=== PATIENT | female | born 1985 | race Caucasian/White ===

== ENCOUNTER 2018-02-16 11:23 | Emergency (ER) | payer OTHER, SELFPAY ==
--- NOTE | 2018-02-16 13:33 | EDPHYS ---
Physician Documentation [facility] Name: Rosemarie Cade Age: 32 yrs Sex: Female : 1985 Arrival Date: 02/16/2018 Time: 11:28 Bed 14 Private MD: ED Physician Shelli Herrera HPI: 02/16 13:31 This 32 yrs old Female presents to ER via Ambulatory with complaints of Flu ma2 Symptoms. 13:31 flu like ssymptoms x 2 days gradual mild unchanged constant. 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 - Social history:: Smoking status: Patient/guardian denies using tobacco, Patient/guardian denies using alcohol, street drugs, The patient lives with family. - Ebola Screening: : No symptoms or risks identified at this time. - Family history:: not pertinent. ROS: 13:31 Cardiovascular: Negative for chest pain, palpitations, and edema, Respiratory: Negative ma2 for shortness of breath, cough, wheezing, and pleuritic chest pain, Abdomen/GI: Negative for abdominal pain, nausea, diarrhea, and constipation, MS/Extremity: Negative for injury and deformity, Skin: Negative for injury, rash, and discoloration, Endocrine: Negative for neck swelling, polydipsia, polyuria, polyphagia, and marked weight changes. 13:31 Constitutional: Positive for body aches, chills, fever, Negative for fatigue, weight loss. 13:31 All other systems are negative. Exam: 13:31 Constitutional: This is a well developed, well nourished patient who is awake, alert, ma2 and in no acute distress. ENT: Nares patent. No nasal discharge, no septal abnormalities noted. Tympanic membranes are normal and external auditory canals are clear. Oropharynx with no redness, swelling, or masses, exudates, or evidence of obstruction, uvula midline. Mucous membranes moist. Chest/axilla: Normal chest wall appearance and motion. Nontender with no deformity. No lesions are appreciated. Cardiovascular: Regular rate and rhythm with a normal S1 and S2. No gallops, murmurs, or rubs. Normal PMI, no JVD. No pulse deficits. Respiratory: Lungs have equal breath sounds bilaterally, clear to auscultation and percussion. No rales, rhonchi or wheezes noted. No increased work of breathing, no retractions or nasal flaring. Skin: Warm, dry with normal turgor. Normal color with no rashes, no lesions, and no evidence of cellulitis. Neuro: Awake and alert, GCS 15, oriented to person, place, time, and situation. Cranial nerves II-XII grossly intact. Motor strength 5/5 in all extremities. Sensory grossly intact. Cerebellar exam normal. Normal gait. Vital Signs: 11:45 BP 147 / 77; Pulse 113; Resp 22 S; Temp 102.2(TE); Pulse Ox 96% ; Weight 68.95 kg (R); aa5 Height 5 ft. 4 in. (162.56 cm) (R); Pain 8/10; 12:45 BP 143 / 71; Pulse 98; Resp 20; Pulse Ox 98% on R/A; Pain 6/10; rb1 13:45 BP 117 / 75; Pulse 99; Resp 20; Pulse Ox 99% on R/A; Pain 5/10; rb1 11:45 Body Mass Index 26.09 (68.95 kg, 162.56 cm) aa5 MDM: 13:31 Differential Diagnosis flu. Data reviewed: vital signs, nurses notes, EMS record. ma2 Counseling: I had a detailed discussion with the patient and/or guardian regarding: the historical points, exam findings, and any diagnostic results supporting the discharge/admit diagnosis, the presence of at least one elevated blood pressure reading (>120/80) during this emergency department visit, the need for outpatient follow up. 13:32 Patient medically screened. nj2 02/16 12:23 Order name: Influenza Screen (a \T\ B); Complete Time: 13:18 ma2 02/16 12:23 Order name: Strep; Complete Time: 13:18 nj2 02/16 12:53 Order name: Throat Culture EDMS Administered Medications: No medications were administered Disposition: 02/16/18 13:32 Discharged to Home. Impression: Influenza due to certain identified influenza viruses. - Condition is Stable. - Discharge Instructions: Influenza, Adult. - Prescriptions for Tamiflu 75 mg Oral Capsule - take 1 capsule by ORAL route every 12 hours for 5 days; 10 capsule. Tylenol- Codeine #3 300-30 mg Oral Tablet - take 2 tablet by ORAL route every 6 hours As needed; 6 tablet. - Medication Reconciliation Form, Thank You Letter, Antibiotic Education, Prescription Opioid Use form. - Follow up: Private Physician; When: Tomorrow; Reason: Continuance of care. Signatures: Dispatcher [employer] EDMS Yin Townsend RN RN aa5 Marycarmen Ramos RN RN rb1 Shelli Herrera MD MD ma2 Corrections: (The following items were deleted from the chart) 14:07 13:32 02/16/2018 13:32 Discharged to Home. Impression: Influenza due to certain rb1 identified influenza viruses. Condition is Stable. Forms are Medication Reconciliation Form, Thank You Letter, Antibiotic Education, Prescription Opioid Use. Follow up: Private Physician; When: Tomorrow; Reason: Continuance of care. ma2
--- NOTE | 2018-02-16 13:33 | ER ---
Nurse's Notes [facility] Name: Rosemarie Cade Age: 32 yrs Sex: Female : 1985 Arrival Date: 02/16/2018 Time: 11:28 Bed 14 Private MD: Diagnosis: Influenza due to certain identified influenza viruses Presentation: 02/16 11:43 Presenting complaint: Patient states: cough, congestion, fever, and chest pain that aa5 began . Transition of care: patient was not received from another setting of care. Onset of symptoms was January 2018. Risk Assessment: Do you want to hurt yourself or someone else? Patient reports no desire to harm self or others. Care prior to arrival: None. 11:43 Method Of Arrival: Ambulatory aa5 11:43 Acuity: VANESSA 3 aa5 12:10 Initial Sepsis Screen: Does the patient meet any 2 criteria? No. Patient's initial rb1 sepsis screen is negative. Does the patient have a suspected source of infection? Yes: Other: fever. Triage Assessment: 12:10 Pain: Complains of pain in bodyaches- generalized Pain currently is 5 out of 10 on a rb1 pain scale. 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 - Social history:: Smoking status: Patient/guardian denies using tobacco, Patient/guardian denies using alcohol, street drugs, The patient lives with family. - Ebola Screening: : No symptoms or risks identified at this time. - Family history:: not pertinent. Screenin:10 Abuse screen: Denies threats or abuse. Tuberculosis screening: No symptoms or risk rb1 factors identified. Fall Risk None identified. 12:10 Nutritional screening: decreased appetite. rb1 Assessment: 12:10 General: Appears uncomfortable, Behavior is calm, cooperative, Reports fever for > 3 rb1 days. Neuro: Level of Consciousness is awake, alert, obeys commands, Oriented to person, place, time, situation. Cardiovascular: Capillary refill < 3 seconds is brisk in bilateral fingers. Respiratory: Airway is patent Respiratory effort is even, unlabored, Respiratory pattern is regular, symmetrical. GI: No signs and/or symptoms were reported involving the gastrointestinal system. : No signs and/or symptoms were reported regarding the genitourinary system. Derm: Skin is dry, Skin is normal, Skin temperature is warm. Vital Signs: 11:45 BP 147 / 77; Pulse 113; Resp 22 S; Temp 102.2(TE); Pulse Ox 96% ; Weight 68.95 kg (R); aa5 Height 5 ft. 4 in. (162.56 cm) (R); Pain 8/10; 12:45 BP 143 / 71; Pulse 98; Resp 20; Pulse Ox 98% on R/A; Pain 6/10; rb1 13:45 BP 117 / 75; Pulse 99; Resp 20; Pulse Ox 99% on R/A; Pain 5/10; rb1 11:45 Body Mass Index 26.09 (68.95 kg, 162.56 cm) aa5 ED Course: 11:28 Patient arrived in ED. sb2 11:44 Triage completed. aa5 11:44 Arm band placed on. aa5 12:08 Shleli Herrera MD is Attending Physician. ma2 12:10 Patient has correct armband on for positive identification. Bed in low position. Call rb1 light in reach. Side rails up X 1. Pulse ox on. NIBP on. 12:31 Marycarmen Ramos, RN is Primary Nurse. rb1 14:00 No provider procedures requiring assistance completed. Patient did not have IV access rb1 during this emergency room visit. Administered Medications: No medications were administered Outcome: 13:32 Discharge ordered by . ma2 14:00 Patient left the ED. rb1 14:00 Discharged to home ambulatory. rb1 14:00 Condition: stable 14:00 Discharge instructions given to patient, Instructed on discharge instructions, follow up and referral plans. medication usage, Demonstrated understanding of instructions, follow-up care, medications, Prescriptions given X 1. Signatures: Yin Townsend RN RN aa5 Marycarmen Ramos, JUAN PABLO RN rb1 Shelli Herrera MD MD ma2 Snehal Stiles sb2 Corrections: (The following items were deleted from the chart) 14:18 14:07 Patient left the ED. rb1 rb1
[2018-02-16 14:19] VITALS: BP 147/77; TEMP 102.2; O2SAT 96
== END 2018-02-16 14:07 | disposition home or self-care (01) ==
LOC: ER 11:23
DX: J10.1 Influenza due to other identified influenza virus with other respiratory manifestations (principal)
CPT/HCPCS: 87070; 87081; 87804; 99283

== ENCOUNTER 2020-04-26 13:03 | Emergency (ER) | payer SELFPAY ==
[2020-04-26] MEDS ORDERED: ACETAMINOPHEN 500 MG TAB ONE (16:01)
[2020-04-26 16:40] LABS: Urine Bacteria 20-50 /HPF (<20); Urine RBC <5 /HPF (NONE SEEN)
[2020-04-26 16:48] LABS: SARS-COV-2 RT PCR NEGATIVE (NEGATIVE)
--- NOTE | 2020-04-26 17:02 | ER ---
Nurse's Notes [facility] Name: Rosemarie Coy Age: 35 yrs Sex: Female : 1985 Arrival Date: 04/26/2020 Time: 13:04 Bed 6 Private MD: Diagnosis: Urinary tract infection, site not specified;Fever, unspecified Presentation: 04/26 13:09 Chief complaint: Patient states: Loss of taste/smell, fever, body aches, chills, BANGURA, ll1 fatigue, no appetite, SOB with exertion for 6 days. Cough for 1 day. R lower back pain for 10 days. No dysuria. Covid test Friday was negative. Coronavirus screen: Client denies travel out of the [place] in the last 14 days. chills, congestion, cough unrelated to allergies, diarrhea, difficulty breathing, fatigue, fever, headache, muscle pain, nausea, shaking with chills, shortness of breath, loss of taste or smell, Client presents with at least one sign or symptom that may indicate coronavirus-19. Standard/surgical mask placed on the client. Ebola Screen: Patient denies travel to an Ebola-affected area in the 21 days before illness onset. Initial Sepsis Screen: Does the patient meet any 2 criteria? HR > 90 bpm. No. Patient's initial sepsis screen is negative. Does the patient have a suspected source of infection? Yes: Productive cough/pneumonia. Risk Assessment: Do you want to hurt yourself or someone else? Patient reports no desire to harm self or others. Onset of symptoms was April 21, 2020. 13:09 Method Of Arrival: Ambulatory ll1 13:09 Acuity: VANESSA 3 ll1 Historical: - Allergies: 13:14 No Known Allergies; ll1 - PMHx: 13:14 None; ll1 - PSHx: 13:14 ; BREAST AUGMENTATION; ll1 - Immunization history:: Flu vaccine is not up to date. - Social history:: Smoking status: Patient denies any tobacco usage or history of. Screenin:30 Abuse screen: Denies threats or abuse. Denies injuries from another. Nutritional ss screening: No deficits noted. Tuberculosis screening: Never had TB. Fall Risk None identified. Assessment: 15:30 General: Appears in no apparent distress. comfortable, Behavior is calm, cooperative, ss Reports feeling ill for > 3 days, fatigue for >3 days. Pain: Complains of pain in generalized body aches Pain currently is 7 out of 10 on a pain scale. Quality of pain is described as aching, Is continuous. Neuro: Level of Consciousness is awake, alert, obeys commands, Oriented to person, place, time, situation, Denies blurred vision dizziness. Cardiovascular: Capillary refill < 3 seconds is brisk in bilateral fingers. Respiratory: Reports cough that is Airway is patent Respiratory effort is even, unlabored, Respiratory pattern is regular, symmetrical. GI: Patient currently denies diarrhea, nausea, vomiting. : No signs and/or symptoms were reported regarding the genitourinary system. EENT: Reports loss of taste/ smell x 6 days. Derm: Skin is intact, is healthy with good turgor, Skin is dry, Skin is pink, warm \\T\\ dry. normal. Musculoskeletal: Circulation, motion, and sensation intact. Range of motion: intact in all extremities, Swelling absent. Vital Signs: 13:09 BP 125 / 90; Pulse 114; Resp 18; Temp 100.7; Pulse Ox 94% on R/A; Weight 70.76 kg; ll1 Height 5 ft. 4 in. (162.56 cm); Pain 7/10; 16:40 Pulse 91; Resp 16; Pulse Ox 98% on R/A; ss 13:09 Body Mass Index 26.78 (70.76 kg, 162.56 cm) ll1 ED Course: 13:04 Patient arrived in ED. am2 13:13 Triage completed. ll1 13:14 Arm band placed on. ll1 15:10 German Figueredo PA is PHCP. jr8 15:10 Justin Mcneal MD is Attending Physician. jr8 15:30 Patient has correct armband on for positive identification. Bed in low position. Call light in reach. 15:47 Shandra Smith, JUAN PABLO is Primary Nurse. 15:56 Urine Microscopic Only Sent. 15:56 Flu Sent. 15:56 COVID-19 : Document "Date of Symptom Onset" if Symptomatic. Sent. ss 16:16 Influenza Screen (A Sent. sv 16:16 CORONAVIRUS Sent. sv 16:16 Urine --Ancillary (enter results) Sent. sv 16:16 Urine Dipstick--Ancillary (enter results) Sent. 17:15 No provider procedures requiring assistance completed. Patient did not have IV access ss during this emergency room visit. Administered Medications: 15:47 Drug: Tylenol 1000 mg Route: PO; Outcome: 17:01 Discharge ordered by . ronan 17:15 Discharged to home ambulatory. 17:15 Condition: good 17:15 Discharge instructions given to patient, Instructed on discharge instructions, follow up and referral plans. medication usage, Demonstrated understanding of instructions, follow-up care, medications, Prescriptions given X 1. 17:19 Patient left the ED. sv Addendum: 04/29/2020 07:10 Addendum: Culture Results: Positive urine culture. No further action required. Bacteria e b sensitive to prescribed antibiotic. Signatures: Mira Stanton RN JUAN PABLO Shandra Smith RN RN German Figueredo PA PA jr8 Johnna Perry Elizabeth eb Lewis, Lynsay RN RN ll1 Corrections: (The following items were deleted from the chart) 04/26 13:14 13:09 Chief complaint: Patient states: Loss of taste/smell, fever, body aches, chills, ll1 BANGURA, fatigue, no appetite, SOB with exertion for 6 days. Cough for 1 day. R lower back pain for 10 days. No dysuria. ll1
--- NOTE | 2020-04-26 17:02 | EDPHYS ---
Physician Documentation [facility] Name: Rosemarie Coy Age: 35 yrs Sex: Female : 1985 Arrival Date: 04/26/2020 Time: 13:04 Bed 6 Private MD: ED Physician Justin Mcneal HPI: 04/26 15:28 This 35 yrs old Female presents to ER via Ambulatory with complaints of no jr8 taste/smell, Fever. 15:28 Onset: The symptoms/episode began/occurred 5 day(s) ago. Associated signs and symptoms: jr8 Pertinent positives: cough, fever, headache, shortness of breath. Associated signs and symptoms: Pertinent positives: Flank pain. Modifying factors: The patient symptoms are alleviated by acetaminophen, ibuprofen. The patient has experienced similar episodes in the past, several times, For Flank pain. Pt reports starting fever last Friday. She was tested for COVID but states that the results are negative. However, she states she is unable to smell or taste, has fever with chills, cough, and general body aches. She also c/o of flank pain with hx of kidney infections. . Historical: - Allergies: 13:14 No Known Allergies; ll1 - PMHx: 13:14 None; ll1 - PSHx: 13:14 ; BREAST AUGMENTATION; ll1 - Immunization history:: Flu vaccine is not up to date. - Social history:: Smoking status: Patient denies any tobacco usage or history of. ROS: 15:31 Cardiovascular: Negative for chest pain, palpitations, and edema, Abdomen/GI: Negative jr8 for abdominal pain, nausea, vomiting, diarrhea, and constipation, Skin: Negative for injury, rash, and discoloration, Neuro: Negative for headache, weakness, numbness, tingling, and seizure. 15:31 Constitutional: Positive for body aches, chills, fever, malaise. 15:31 Respiratory: Positive for cough, with no reported sputum, shortness of breath, on exertion. 15:31 Back: Positive for flank pain, bilaterally. Exam: 15:32 ENT: Nares patent. No nasal discharge, no septal abnormalities noted. Tympanic jr8 membranes are normal and external auditory canals are clear. Oropharynx with no redness, swelling, or masses, exudates, or evidence of obstruction, uvula midline. Mucous membranes moist. Chest/axilla: Normal chest wall appearance and motion. Nontender with no deformity. No lesions are appreciated. Cardiovascular: Regular rate and rhythm with a normal S1 and S2. No gallops, murmurs, or rubs. Normal PMI, no JVD. No pulse deficits. Respiratory: Lungs have equal breath sounds bilaterally, clear to auscultation and percussion. No rales, rhonchi or wheezes noted. No increased work of breathing, no retractions or nasal flaring. Abdomen/GI: Soft, non-tender, with normal bowel sounds. No distension or tympany. No guarding or rebound. No evidence of tenderness throughout. Vital Signs: 13:09 BP 125 / 90; Pulse 114; Resp 18; Temp 100.7; Pulse Ox 94% on R/A; Weight 70.76 kg; ll1 Height 5 ft. 4 in. (162.56 cm); Pain 7/10; 16:40 Pulse 91; Resp 16; Pulse Ox 98% on R/A; ss 13:09 Body Mass Index 26.78 (70.76 kg, 162.56 cm) ll1 MDM: 15:14 Patient medically screened. 8 15:33 Data reviewed: vital signs, lab test result(s), Flu: urinalysis, COVID. 8 15:34 Data interpreted: panel monitor: rate is 114 beats/min, Pulse oximetry: on room air jr8 is 94 %. Interpretation: acceptable. 04/26 15:11 Order name: COVID-19 : Document "Date of Symptom Onset" if Symptomatic. [facility] 04/26 15:11 Order name: Flu 8 04/26 15:27 Order name: Urine Microscopic Only [facility] 04/26 15:57 Order name: Urine Dipstick--Ancillary (enter results) 1 04/26 15:57 Order name: Urine --Ancillary (enter results) em 04/26 15:27 Order name: Urine Test (obtain specimen); Complete Time: 15:56 8 04/26 15:27 Order name: Urine Dipstick-Ancillary (obtain specimen); Complete Time: 15:56 [facility] 04/26 16:41 Order name: Urine Microscopic Only; Complete Time: 16:41 EDKY 04/26 16:48 Order name: COVID-19/FLU A+B; Complete Time: 17:00 EDMS Administered Medications: 15:47 Drug: Tylenol 1000 mg Route: PO; Disposition: 04/27 07:21 Co-signature as Attending Physician, Justin Mcneal MD I agree with the assessment and kdr plan of care. Disposition: 04/26/20 17:01 Discharged to Home. Impression: Urinary tract infection, site not specified, Fever, unspecified. - Condition is Stable. - Discharge Instructions: Urinary Tract Infection, Adult. - Prescriptions for Macrobid 100 mg Oral Capsule - take 1 capsule by ORAL route every 12 hours for 7 days; 14 capsule. - Medication Reconciliation Form, Thank You Letter, Antibiotic Education, Prescription Opioid Use form. - Follow up: Private Physician; When: 2 - 3 days; Reason: Recheck today's complaints, Continuance of care, Re-evaluation by your physician. - Problem is new. - Symptoms have improved. Signatures: Dispatcher [employer] EDKY Mira Stanton RN RN Justin Mcneal MD MD [facility] Shandra Smith RN RN German Figueredo, NADYA PA jr8 Maria L Campos RN RN ll1 Corrections: (The following items were deleted from the chart) 04/26 17:19 17:01 04/26/2020 17:01 Discharged to Home. Impression: Urinary tract infection, site sv not specified; Fever, unspecified. Condition is Stable. Forms are Medication Reconciliation Form, Thank You Letter, Antibiotic Education, Prescription Opioid Use. Follow up: Private Physician; When: 2 - 3 days; Reason: Recheck today's complaints, Continuance of care, Re-evaluation by your physician. Problem is new. Symptoms have improved. jr8
[2020-04-26 18:12] LABS: Urine Blood 1+ (NEG); Urine Glucose NEGATIVE (NEG); Urine Protein 1+ (NEG)
[2020-04-27 10:17] VITALS: BP 125/90; TEMP 100.7; O2SAT 98
== END 2020-04-26 17:19 | disposition home or self-care (01) ==
LOC: ER 13:03
DX: N39.0 Urinary tract infection, site not specified (principal); Z20.822 Contact with and (suspected) exposure to COVID-19; Z98.82 Breast implant status
CPT/HCPCS: 0240U; 81003; 81015; 81025; 87077; 87086; 87088; 87186; 99283